=== PATIENT | male | born 1960 | race Caucasian/White ===

== ENCOUNTER 2025-01-28 19:57 | Inpatient (IN) | payer MEDICARE, OTHER ==
[~2025-01-28] VITALS: Ht 172.7 cm; Wt 104.3 kg
[2025-01-28 21:28] LABS: PLATELET COUNT (AUTO) 58 K/uL (152-348); RED BLOOD CELL COUNT(AUTO) 4.77 MIL/uL (4.06-5.63); RED CELL DISTRIBUTION WIDTH 17.0 % (12.1-16.2); WHITE BLOOD COUNT (AUTO) 8.3 K/uL (3.6-10.2)
[2025-01-28] MEDS ORDERED: CLON0.5T2 PO (21:30)
[2025-01-28 21:38] LABS: CREATININE 1.4 mg/dL (0.6-1.3); SODIUM SERUM 143 mmol/L (136-145); UREA NITROGEN, BLOOD 29 mg/dL (7-18)
[2025-01-28 21:45] LABS: ETHANOL < 3 MG/DL (0-10)
[2025-01-28] MEDS ORDERED: CYAN100T44 PO (21:45)
[2025-01-28] MEDS ORDERED: HYDR25TA4 PO (21:45)
[2025-01-28] MEDS ORDERED: CLON2TAB11 PO (21:45)
[2025-01-28] MEDS ORDERED: ERGO400C PO (21:45)
[2025-01-28] MEDS ORDERED: RIVA10TA PO (21:45)
[2025-01-28] MEDS ORDERED: MIRT-74 PO (21:45)
[2025-01-28] MEDS ORDERED: OLAN10TA73 PO (21:45)
[2025-01-28 21:48] LABS: LACTIC ACID 2.9 mmol/L (0.4-2.0)
[2025-01-28 21:53] LABS: ASPARTATE AMINOTRANSFERASE 16 U/L (15-37); TOTAL PROTEIN, SERUM 7.9 g/dL (6.4-8.2)
[2025-01-28 22:00] VITALS: BP 130/84
[2025-01-28 22:23] LABS: LYMPHOCYTES % (MANUAL) 10 % (20-40); NEUTROPHILS % (MANUAL) 84 % (42-75); PLATELET ESTIMATE FEW LARGE PLTS
[2025-01-28 22:26] LABS: MONOCYTES % (MANUAL) 6 % (2-10)
[2025-01-28] MEDS ORDERED: CEFTRIAXONE /D5W 50ML IVPB **ER PYXIS IV ONE (22:44)
[2025-01-28] MEDS: IV NORMAL SALINE 1000 ML BAG IV ONE (22:47)
[2025-01-28] MEDS ORDERED: diphenhydrAMINE 50 MG/1 ML VIAL ONE (22:48)
[2025-01-28] MEDS: diphenhydrAMINE 50 MG/1 ML VIAL IV ONE (22:50)
[2025-01-28] MEDS ORDERED: ACETAMINOPHEN 325 MG TABLET PO PRN (23:00)
[2025-01-28] MEDS ORDERED: REMEDY ESSENTIAL ZINC PASTE 113 GM TP PRN (23:00)
[2025-01-28] MEDS ORDERED: ONDANSETRON 4 MG/2 ML VIAL IV PRN (23:00)
[2025-01-28] MEDS ORDERED: MAGNESIUM HYDROXIDE 30 ML LIQUID UDC PO PRN (23:00)
[2025-01-29 00:30] VITALS: BP 123/81; TEMP 97.5; O2SAT 100
[2025-01-29] MEDS: ENOXAPARIN SODIUM 40 MG/0.4 ML DISP.SYRIN SQ ONE (00:30)
[2025-01-29 04:00] VITALS: BP 125/77; TEMP 98; O2SAT 95
[2025-01-29] MEDS: IV D5 1/2 NS 1000 ML 1,000 ML IV PRN (06:54)
[2025-01-29 07:43] LABS: PLATELET COUNT (AUTO) 126 K/uL (152-348); RED BLOOD CELL COUNT(AUTO) 4.30 MIL/uL (4.06-5.63); RED CELL DISTRIBUTION WIDTH 16.9 % (12.1-16.2); WHITE BLOOD COUNT (AUTO) 4.7 K/uL (3.6-10.2)
[2025-01-29 07:55] LABS: CREATININE 1.0 mg/dL (0.6-1.3); SODIUM SERUM 143.0 mmol/L (136-145); UREA NITROGEN, BLOOD 25.0 mg/dL (7-18)
[2025-01-29] MEDS: PANTOPRAZOLE SODIUM 40 MG VIAL IV SCH (08:47)
[2025-01-29] MEDS ORDERED: MIRT-94 PO (10:24)
[2025-01-29 11:30] VITALS: BP 107/65; TEMP 97.6; O2SAT 97
[2025-01-29] MEDS ORDERED: CYAN-37 PO (11:38)
[2025-01-29] MEDS ORDERED: ATOR20TA PO (13:44)
[2025-01-29 15:01] LABS: *BILIRUBIN,URIN NEGATIVE (NEGATIVE); *BLOOD, URINE NEGATIVE (NEGATIVE); *CLARITY,URINE CLEAR (CLEAR); *COLOR,URINE YELLOW (YELLOW); *KETONES,URINE NEGATIVE (NEGATIVE); *PROTEIN,URINE NEGATIVE (NEGATIVE); *UROBILINOGEN,URINE 0.2 E.U./dl (NORMAL); LEUKOCYTE ESTERASE ,URINE NEGATIVE (NEGATIVE); NITRITE, URINE NEGATIVE (NEGATIVE); UGLUCOSE NEGATIVE (NEGATIVE)
[2025-01-29 15:14] LABS: *AMPHETAMINE, URINE NEGATIVE (NEGATIVE); *BARBITURATE, URINE NEGATIVE (NEGATIVE); *BENZODIAZEPINE, URINE NEGATIVE (NEGATIVE); *CANNABINOID, URINE NEGATIVE (NEGATIVE); *COCCAINE, URINE NEGATIVE (NEGATIVE); *OPIATE, URINE NEGATIVE (NEGATIVE); *PHENCYCLIDINE SCREEN,URINE NEGATIVE (NEGATIVE); FENTANYL, URINE NEGATIVE (NEGATIVE)
[2025-01-29 16:00] VITALS: BP 127/76; TEMP 97.5; O2SAT 99
[2025-01-29] MEDS: CLONAZEPAM 1 MG TABLET PO SCH (17:16)
[2025-01-29] MEDS: OLANZAPINE 5 MG TABLET PO SCH (17:23)
[2025-01-29 19:00] VITALS: BP 150/89; TEMP 97.7; O2SAT 97
[2025-01-29] MEDS: ATORVASTATIN 20 MG TABLET PO SCH (20:21)
[2025-01-29] MEDS: MIRTAZAPINE 15 MG TABLET PO SCH (20:22)
[2025-01-29] MEDS ORDERED: ENOXAPARIN SODIUM 40 MG/0.4 ML DISP.SYRIN SQ SCH (21:00)
[2025-01-29] MEDS: CEFAZOLIN 1 G in IV DEXTROSE 5% 50 ML IV SCH (21:14)
[2025-01-30 04:00] VITALS: BP_SYST 104; BP_SYST 145; BP_DIAS 47; BP_DIAS 85; TEMP 98.2; TEMP 98.4; O2SAT 94; O2SAT 98
[2025-01-30] MEDS: CYANOCOBALAMIN 1,000 MCG TABLET PO SCH (10:54)
[2025-01-30] MEDS: CHOLECALCIFEROL 400 UNITS TABLET PO SCH (10:55)
[2025-01-30] MEDS: RIVAROXABAN 10 MG TABLET PO SCH (10:57)
[2025-01-30 11:30] VITALS: BP 138/78; TEMP 98.7; O2SAT 98
[2025-01-30 15:45] VITALS: BP 151/78; TEMP 99.8; O2SAT 97
[2025-01-30 19:00] VITALS: BP 143/83; TEMP 98.7; O2SAT 95
[2025-01-31 06:16] VITALS: BP 137/77; TEMP 97.7; O2SAT 98
[2025-01-31] MEDS: PANTOPRAZOLE SODIUM 40 MG TABLET.DR PO SCH (06:30)
[2025-01-31 08:27] LABS: PLATELET COUNT (AUTO) 144 K/uL (152-348); RED BLOOD CELL COUNT(AUTO) 4.63 MIL/uL (4.06-5.63); RED CELL DISTRIBUTION WIDTH 16.8 % (12.1-16.2); WHITE BLOOD COUNT (AUTO) 5.0 K/uL (3.6-10.2)
[2025-01-31 08:43] LABS: CREATININE 1.0 mg/dL (0.6-1.3); SODIUM SERUM 141.0 mmol/L (136-145); UREA NITROGEN, BLOOD 22.0 mg/dL (7-18)
[2025-01-31 11:30] VITALS: BP 143/91; TEMP 97.8; O2SAT 97
[2025-01-31] MEDS ORDERED: CEPH500C2 PO (11:56)
[2025-01-31] MEDS ORDERED: DOSING PER PHARMACY-ENOXAPARIN XX PRN (13:30)
[2025-01-31] MEDS: ENOXAPARIN SODIUM 100 MG/ML DISP.SYRIN SQ SCH (14:56)
[2025-01-31 15:30] VITALS: BP 129/79; TEMP 97.9; O2SAT 97
== END 2025-01-31 16:00 | DRG 602 ==
LOC: ER 20:00 → TELE3 23:03 → MEDSURG3 01-29 00:25
PROVIDERS: ADMIT Student in an Organized Health Care Education/Training Program; ATTEND Student in an Organized Health Care Education/Training Program
DX: L03.115 Cellulitis of right lower limb (principal); N17.0 Acute kidney failure with tubular necrosis; I82.412 Acute embolism and thrombosis of left femoral vein; D69.6 Thrombocytopenia, unspecified; L03.116 Cellulitis of left lower limb; I11.9 Hypertensive heart disease without heart failure; F39 Unspecified mood [affective] disorder; D68.59 Other primary thrombophilia; Z59.02 Unsheltered homelessness; R00.0 Tachycardia, unspecified; G47.00 Insomnia, unspecified; T45.516A Underdosing of anticoagulants, initial encounter; Z91.148 Patient's other noncompliance with medication regimen for other reason; Y92.410 Unspecified street and highway as the place of occurrence of the external cause; R41.82 Altered mental status, unspecified
CPT/HCPCS: 36415; 70030-TC; 70450; 71045; 83605; 83735; 84100; 84443; 84484; 85025; 85730; 87040; 87086; 93307; A4663; G0378; G0480; J0690; J0696; J1200; J1650; J2470; J7040